=== PATIENT | female | born 1980 | race Caucasian/White ===

== ENCOUNTER → 2019-03-30 | Outpatient (CLI) | payer BC ==
[~2019-03-30] MED LIST: ALBU2.5V8 INH; BREO ELLIPTA 11 EACH IH; CETI10TA22 PO; CITA40TA5 PO; HYDR-3164 PO; LEVO1TAB PO; LISI10TA2 PO; MONT10TA49 PO; TRAZ-118 PO
[2019-03-30 14:21] LABS: BASO % 0 % (0-3); EOS # 0.1 x10^3/uL (0.0-0.7); EOS % 2 % (0-3); HEMATOCRIT 40.7 % (36.0-47.0); HEMOGLOBIN 14.1 g/dL (12.0-15.5); LYMPH # 1.8 x10^3/uL (1.0-4.8); LYMPH % 32 % (24-48); MEAN CORPUSCULAR HEMOGLOBIN 32 pg (25-35); MEAN CORPUSCULAR HGB CONC 35 g/dL (31-37); MEAN CORPUSCULAR VOLUME 93 fL (79-100); MONO # 0.4 x10^3/uL (0.0-1.1); MONO % 8 % (0-9); NEUT # 3.3 x10^3/uL (1.8-7.7); NEUT % 58 % (31-73); PLATELET COUNT 291 x10^3/uL (140-400); RED BLOOD COUNT 4.36 x10^6/uL (3.50-5.40); WHITE BLOOD COUNT 5.6 x10^3/uL (4.0-11.0)
[2019-03-30 14:44] LABS: ALBUMIN 3.5 g/dL (3.4-5.0); CALCIUM 8.8 mg/dL (8.5-10.1); CREATININE 0.8 mg/dL (0.6-1.0); GFR 80.3; POTASSIUM 3.7 mmol/L (3.5-5.1); TOTAL BILIRUBIN 0.6 mg/dL (0.2-1.0)
== END | disposition home or self-care (01) ==
LOC: SURGPAT 13:37
PROVIDERS: ATTEND Surgery
DX: Z01.818 Encounter for other preprocedural examination (principal); K80.20 Calculus of gallbladder without cholecystitis without obstruction; Z88.2 Allergy status to sulfonamides
CPT/HCPCS: 36415; 80048; 82040; 82247; 85025

== ENCOUNTER 2019-04-02 11:03 | Day surgery (SDC) | payer BC ==
[~2019-04-02] VITALS: Ht 162.6 cm; Wt 97.0 kg
[~2019-04-02 11:03] MED LIST changes: +BUPIVACAINE-EPI 0.5%-1:200000 MPF 30 ML VIAL. INJ ONE; +DEXAMETHASONE SOD PHOS 20 MG/5 ML VIAL. ONE; -HYDR-3164 PO; +HYDROmorphone 2 MG/ML VIAL IV PRN; +IV RINGERS,LACTATED 1000ML 1,000 ML IV SCH; +LIDOCAINE 1% PF 2 ML VIAL. ID PRN; +LIDOCAINE 2% PF 5 ML VIAL. ONE; +MIDAZOLAM HCL/PF 2 MG/2 ML VIAL. ONE; +MORPHINE SULFATE 2 MG/ML VIAL. IV PRN; +ONDANSETRON PF 4 MG/2 ML VIAL. ONE; +PROCHLORPERAZINE 10 MG/2 ML VIAL. IV PRN; +PROPOFOL 20 ML IV ONE; +ROCURONIUM 50 MG/5 ML VIAL. ONE; +fentaNYL PF VIAL 100 MCG/2 ML VIAL ONE
[2019-04-02] MEDS ORDERED: GLUCAGON,HUMAN RECOMBINANT 1 MG/ML VIAL. ONE (11:25)
[2019-04-02] MEDS ORDERED: IOHEXOL 300 MG/ML 50 ML VIAL. ONE (11:25)
[2019-04-02] MEDS ORDERED: SURGICEL HEMOSTAT 4X8 EACH. ONE (11:25)
[2019-04-02] MEDS ORDERED: KETOROLAC 30 MG/ML VIAL. ONE (12:16)
[2019-04-02] MEDS ORDERED: fentaNYL PF VIAL 100 MCG/2 ML VIAL ONE ×3 (12:18→14:22)
[2019-04-02] MEDS ORDERED: GLYCOPYRROLATE 1 MG/5 ML VIAL. ONE (12:20)
[2019-04-02] MEDS ORDERED: ePHEDrine PF IN SALINE 50 MG/10 ML SYRINGE. IV ONE (12:20)
[2019-04-02] MEDS ORDERED: NEOSTIGMINE METHYLSULFATE 5 MG/5 ML SYRINGE. ONE (12:21)
[2019-04-02] MEDS ORDERED: SEVOFLURANE 61 TO 120 MINUTES. IH ONE (12:32)
--- NOTE | 2019-04-02 12:58 | RAD ---
Examination: CHOLANGIOGRAM INTRAOPERATIVE History: Gallstone history. Right upper quadrant pain. Comparison/Correlation: Limited abdominal ultrasound exam 03/18/2019 Findings: Hair Cutter view demonstrates cholecystectomy clips. 2 additional images were subsequently provided. Fluoroscopy was utilized for 27 seconds. Contrast is noted within the common bile duct and common hepatic duct with no stricture or suspicious filling defect. There is no extravasation about the cystic duct remnant. Impression: No suspicious filling defects, strictures, or extravasation of contrast. Electronically signed by: Deacon Almazan MD (04/02/2019 12:55 PM) [facility]
--- NOTE | 2019-04-02 13:34 | DISCH ---
DISCHARGE INSTRUCTIONS Condition on Discharge Condition on Discharge: Stable Activity After Discharge Activity Instructions for Disc: Activity as tolerated, Avoid exertion Lifting Instructions after Dis: No heavy lifting Driving Instructions after Dis: Do not drive (3-4 days) Diet after Discharge Diet after Discharge: Regular Wound Incision Care Wound/Incision Care: Ice to area for comfort Other wound/incision instructi: november shower Friday Follow-Up Follow up with: Marcio next week YENIFER ESCAMILLA MD Apr 02, 2019 13:34
[2019-04-02] MEDS: fentaNYL PF VIAL 100 MCG/2 ML VIAL IV PRN ×4 (13:35→14:31)
--- NOTE | 2019-04-02 13:40 | PDOC ---
BRIEF OPERATIVE NOTE Date: Apr 02, 2019 Pre-Op Diagnosis symptomatic cholelithiasis Post-Op Diagnosis same Procedure Performed l/s cholecystectomy with cholangiograms Surgeon Marcio MCLEAN Anesthesia Type: General Blood Loss 20cc IV Fluid 800cc Specimens Obtained GB Findings supple GB, normal grams Complications none Operative Note Wk # [id number] YENIFER ESCAMILLA MD Apr 02, 2019 13:40
[2019-04-02] MEDS ORDERED: HYDR-3164 PO (14:19)
[2019-04-02] MEDS ORDERED: HYDROcodone/APAP 5/325MG 1 TAB TABLET ONE (14:20)
[2019-04-02 14:45] VITALS: BP 114/86
[2019-04-02] MEDS ORDERED: HYDROcodone/APAP 5/325MG 1 TAB TABLET PO ONE (14:45)
--- NOTE | 2019-04-02 18:52 | OP ---
DATE OF SURGERY: 04/02/2019 PREOPERATIVE DIAGNOSIS: Symptomatic cholelithiasis. POSTOPERATIVE DIAGNOSIS: Symptomatic cholelithiasis. PROCEDURE: Laparoscopic cholecystectomy with cholangiogram. SURGEON: Yenifer Escamilla MD DIRECTOR EXPORT: CARIDAD Arnold ANESTHESIA: General endotracheal. ESTIMATED BLOOD LOSS: 20 mL. INTRAVENOUS FLUIDS: 800 mL. INDICATIONS: The patient is a 38-year-old with epigastric and right upper quadrant pain. Ultrasound shows stones. She is brought for cholecystectomy. OPERATIVE FINDINGS: The liver was generous, smooth, and sharp. The gallbladder was supple. Cholangiograms were unremarkable. Visual inspection of the remainder of the abdomen failed to reveal obvious abnormalities. DESCRIPTION OF PROCEDURE: The patient brought to the operating suite, given a general endotracheal anesthetic and the abdomen prepped and draped in usual sterile fashion. A supraumbilical incision was infiltrated with local anesthetic, incised and a 5 mm Visiport used to gain access into the abdominal cavity, taking care to avoid injury of abdominal contents. Pneumoperitoneum established. Camera inserted. Inspection carried out with results as noted above. With the table in reverse Trendelenburg rolled to the left, the epigastric and midclavicular ports were placed under direct vision. The lateral port location was used for an "alligator" grasper. Gallbladder was retracted superolaterally and the cystic duct and cystic artery were exposed. The duct was clipped on the gallbladder side. Cholangiograms were made. These were normal, showing a redundant cystic duct with a distal junction. In light of this, the catheter was removed. The cystic duct was clipped and divided, taking care to avoid injury or compromise of the common duct. Cystic artery was clipped and divided and gallbladder freed from the bed with cautery dissection and placed in an EndoCatch bag. Good hemostasis was seen in the fossa without evidence of a bile leak. Table returned to level. Gallbladder delivered through the epigastric incision. Epigastric incision was closed with 0 Vicryl suture. At 6 cm intraabdominal pressure, no bleeding from the epigastric closure or from the midclavicular port site after its removal or from the location of the alligator grasper. Abdomen decompressed. Camera removed, no bleeding seen. Skin incisions closed with subcuticular 4-0 Monocryl. Steri-Strips and sterile dressings applied. The patient was awakened from her anesthetic and taken to the recovery room in satisfactory condition. YENIFER ESCAMILLA MD DR: Charo JOB#: [id number] / [id number]
--- NOTE | 2019-04-07 09:07 | PATHOLOGY ---
[facility] Accession Number: [id number] . 01 Material submitted: . gallbladder - GALLBLADDER . 01 Clinical history: . Cholecystitis . 02 Diagnosis: Gallbladder, cholecystectomy: - Chronic calculus cholecystitis. - Focal low grade adenomatous dysplasia is present, margins uninvolved. - Negative for high grade dysplasia and malignancy. (MAP/db; 04/05/19) LBQ 04/07/2019 0836 Local . 02 Electronically signed: . Ozzie Conley MD, Pathologist NPI- [id number] . 01 Gross description: . The specimen is received in formalin, labeled "Rachel Townsend, gallbladder". Received is a previously punctured gallbladder measuring 6.9 x 2.3 x 2.1 cm in greatest dimensions displaying a santiago-brasher serosal surface. Opening the specimen reveals a velvety, bile-stained mucosa with a gallbladder wall thickness of 0.1 cm. A single black, stellate calculus is present, and no masses or lesions are noted grossly. Measurement Superintendent sections, to include the proximal margin, are submitted in cassette A1. (CAA; 04/04/2019) . After initial microscopic examination, additional factory representative sections are submitted from proximal to fundal aspects in cassettes A2 through A5. (CAA; 04/05/2019) QAC/QA 04/05/2019 1553 Local . 02 Pathologist provided ICD-10: K81.1 . 02 CPT . 885630 Specimen Comment: A courtesy copy of this report has been sent to Specimen Comment: [phone], . Specimen Comment: Report sent to / DR FRIAS Performed at: 01 [facility] [address] [place] [address] [address], [place], [place] [id number] MD Jose Olea MD Phone: [phone] Performed at: [address] [place] [id number] MD Estephania Roth MD Phone: [phone]
== END 2019-04-02 15:25 | disposition home or self-care (01) ==
LOC: SURG 11:03 → EDUNIT# 12:00 → SURG 15:25
PROVIDERS: ATTEND Surgery
DX: R10.11 Right upper quadrant pain (principal); K80.10 Calculus of gallbladder with chronic cholecystitis without obstruction; I10 Essential (primary) hypertension; J45.909 Unspecified asthma, uncomplicated; E66.09 Other obesity due to excess calories; Z68.34 Body mass index [BMI] 34.0-34.9, adult; F41.9 Anxiety disorder, unspecified; F32.9 Major depressive disorder, single episode, unspecified; Z79.899 Other long term (current) drug therapy
CPT/HCPCS: 47562; 74300; 81025; A7015; J0171; J0696; J1100; J1885; J2001; J2250; J2405; J2704; J2710; J3010; J3490; J7030; J7120; Q9967; 88304; J1610